=== PATIENT | female | born 1995 | race Caucasian/White ===

== ENCOUNTER 2018-02-19 11:17 | Outpatient (CLI) | payer MEDICAID ==
--- NOTE | 2018-02-19 12:22 | Non Stress Test Report ---
Non Stress Test Datetime Report Generated by CPN: 02/19/2018 12:22 DEMOGRAPHIC Test Number: 1 EGA NST: 34.6 INDICATION Indication for Study: Ordered by Provider MONITORING Monitor Explained: Monitor Explained; Test Explained; Patient Verbalized Understanding Time on Monitor: 02/19/2018 11:29 Time off Monitor: 02/19/2018 12:13 NST Duration: 44 NST INTERVENTIONS NST Interventions: PO Hydration Physician Notified NST: Faulkner, CNM BABY A: [id number] BABY A Movement : Present Contraction Frequency : 0 FHR Baseline : 135 Accelerations : 15X15 Decelerations : None Variability : Moderate 6-25bpm NST Review: Meets Criteria for Reactive NST NST Review and Verified By : TARSHA Broderick NST Results: Reactive NST REPORT Report Trigger: Send Report
== END 2018-02-19 12:21 | disposition home or self-care (01) ==
LOC: LC 11:17
PROVIDERS: ATTEND Obstetrics & Gynecology
DX: Z34.93 Encounter for supervision of normal pregnancy, unspecified, third trimester (principal); Z3A.34 34 weeks gestation of pregnancy
CPT/HCPCS: 59025

== ENCOUNTER 2018-03-20 07:15 | Inpatient (IN) | payer MEDICAID ==
[2018-03-20] MEDS ORDERED: DINOPROSTONE 10 MG VAGINAL INSERT.SR PV PRN (07:34)
[2018-03-20] MEDS ORDERED: RINGERS SOLUTION,LACTATED 300 ML IV ONE (07:34)
[2018-03-20] MEDS ORDERED: OXYTOCIN/NORMAL SALINE 20 UNIT/1,000 ML RTUINJ IV PRN ×2 (07:34→18:26)
[2018-03-20] MEDS ORDERED: RINGERS SOLUTION,LACTATED 1,000 ML IV PRN (07:34)
[2018-03-20 08:30] LABS: APPEARANCE,URINE CLEAR; BILIRUBIN,URINE NEGATIVE (NEGATIVE); COLOR,URINE YELLOW; GLUCOSE, URINE NEGATIVE (NEGATIVE); KETONES,URINE NEGATIVE (NEGATIVE); LEUKOCYTE ESTERASE,URINE TRACE (NEGATIVE); NITRITE,URINE NEGATIVE (NEGATIVE); PROTEIN,URINE NEGATIVE (NEGATIVE); URINE SPECIFIC GRAVITY 1.008; UROBILINOGEN,URINE NEGATIVE mg/dL (<2.0)
[2018-03-20 08:36] LABS: PROTHROMBIN TIME 12.7 SEC (11.4-15.4)
[2018-03-20 08:37] LABS: PARTIAL THROMBOPLASTIN TIME 33.1 SEC (23.5-35.8)
[2018-03-20 08:41] LABS: ABSOLUTE EOSINOPHILS # (AUTO) 0.1 10^3/uL (0.0-0.6); ABSOLUTE LYMPHOCYTES (AUTO) 2.9 10^3/uL (0.5-4.7); ABSOLUTE MONOCYTES (AUTO) 1.3 10^3/uL (0.1-1.4); ABSOLUTE NEUT (AUTO) 12.6 10^3/uL (1.7-8.2); ALANINE AMINOTRANSFERASE 22 U/L (9-52); ALBUMIN 3.3 g/dL (3.5-5.0); ALKALINE PHOSPHATASE 296 U/L (38-126); ANION GAP 9 (5-19); ASPARTATE AMINO TRANSFERASE 15 U/L (14-36); BASOPHILS % (AUTO) 0.2 % (0-2); BILIRUBIN,DIRECT 0.2 mg/dL (0.0-0.4); BILIRUBIN,TOTAL 0.4 mg/dL (0.2-1.3); BLOOD UREA NITROGEN 5 mg/dL (7-20); CALCIUM 9.9 mg/dL (8.4-10.2); CARBON DIOXIDE 20 mmol/L (22-30); CHLORIDE 107 mmol/L (98-107); EOSINOPHILS % (AUTO) 0.7 % (0-6); GLUCOSE 76 mg/dL (75-110); HEMATOCRIT 33.2 % (36.0-47.0); HEMOGLOBIN 11.6 g/dL (12.0-15.5); LYMPHOCYTES % (AUTO) 16.9 % (13-45); MEAN CORPUSCULAR HEMOGLOBIN 30.4 pg (27.0-33.4); MEAN CORPUSCULAR HGB CONC 34.9 g/dL (32.0-36.0); MEAN CORPUSCULAR VOLUME 87 fl (80-97); MONOCYTES % (AUTO) 7.8 % (3-13); PLATELET COUNT 418 10^3/uL (150-450); POTASSIUM 4.4 mmol/L (3.6-5.0); RED BLOOD COUNT 3.81 10^6/uL (3.72-5.28); RED CELL DISTRIBUTION WIDTH 13.8 % (11.5-14.0); SEGMENTED NEUTROPHILS % (AUTO) 74.4 % (42-78); SODIUM 136.3 mmol/L (137-145); TOTAL CELLS COUNTED % (AUTO) 100 %; TOTAL PROTEIN 6.4 g/dL (6.3-8.2); WHITE BLOOD COUNT 16.9 10^3/uL (4.0-10.5)
[2018-03-20 08:58] LABS: URINE AMPHETAMINES SCREEN NEGATIVE; URINE BARBITURATES SCREEN NEGATIVE; URINE BENZODIAZEPINES SCREEN NEGATIVE; URINE COCAINE SCREEN NEGATIVE; URINE MARIJUANA (THC) SCREEN NEGATIVE; URINE METHADONE SCREEN NEGATIVE; URINE PHENCYCLIDINE SCREEN NEGATIVE
[2018-03-20] MEDS ORDERED: OXYTOCIN/NORMAL SALINE 20 UNIT/1,000 ML RTUINJ ONE (09:38)
[2018-03-20] MEDS ORDERED: LIDOCAINE 1% INJ-PF (10 MG/ML) 30 ML SDV ONE (09:38)
[2018-03-20] MEDS ORDERED: MISOPROSTOL 0.2 MG TABLET ONE (09:38)
--- NOTE | 2018-03-20 10:59 | Admission Physical ---
Datetime Report Generated by CPN: 03/20/2018 10:59 CURRENT ADMISSION Hx Assessment: The History has been Reviewed and is Current Chief Complaint: Scheduled Induction of Labor Indication for Induction- Other: blood coag disorder Admit Impression : Term, Intrauterine Admit Plan: Admit to Unit; Initiate Labor Induction Protocol ALLERGIES Medication Allergies: Yes Medication Allergies: Penicillins/Facial swelling (03/20/2018); cefdinir/Facial swelling (03/20/2018) Latex: No Latex Allergies Food Allergies: n/a Environmental Allergies: dust, cats, dogs OBSTETRICAL HISTORY EDC: 03/27/2018 00:00 : 4 Para: 1 Term: 1 : 0 SAB: 2 IAB: 0 Ectopic: 0 Livin Cesareans: 1 VBACs: 0 Multiple Births: 0 Gestational Diabetes: No Rh Sensitization: No Incompetent Cervix: Yes KAYLEEN: No Infertility: No ART Treatment: No Uterine Anomaly: No IUGR: No Hx Previous C/S: No Macrosomia: No Hx Loss/Stillborn: No PIH: No Hx : No Placenta Previa/Abruption: No Depression/PP Depression: No PTL/PROM: No Post Hemorrhage: No Current Procedures: Ultrasound; NST; Cerclage Obstetrical History Comments: SEE RECORDS Alcohol: No Marijuana : No Cocaine: No Other Illicit Drugs: No Cigarettes: Former Smoker. [id number] MEDICAL HISTORY Diabetes: No Blood Transfusion: No Pulmonary Disease (Asthma, TB): Yes Breast Disease: No Hypertension: No Managed Care Manager Surgery: No Heart Disease: No Hosp/Surgery: No Autoimmune Disorder: No Anesthetic Complications: No Kidney Disease: No Abnormal Pap Smear: Yes Neuro/Epilepsy: No Psychiatric Disorders: No Other Medical Diseases: No Hepatitis/Liver Disease: No Significant Family History: No Varicosities/Phlebitis: No Trauma/Violence : No Thyroid Dysfunction: No Medical History Comments: asthma- juvenile , cerclage after abnormal pap smear per patient historian, leap procedure 2016 INFECTIOUS HISTORY Gonorrhea: No Genital Herpes: No Chlamydia: Yes Tuberculosis: No Syphilis: No Hepatitis: No HIV/AIDS Exposure: No Rash or Viral Illness: No HPV: Yes Infectious History Comments: chlamydia- 2012, PHYSICAL EXAM General: Normal HEENT: Deferred Neurologic: Normal Thyroid: Normal Heart: Normal Lungs: Normal Breast: Deferred Back: Normal Abdomen: Normal Genitourinary Exam: Normal Extremities: Normal DTRs: Normal Pelvic Type: Adequate Physical Exam Comments: Hx multiple LEEPS Cerclage removed, 10-2 RH Neg Vital Signs: Reviewed FETUS A EGA: 39.0 Monitoring: External US Admit Comment: Admitted for IOL, no c/o, took Heparin last night Cat 1 strip, irreg uc's Dr. Townsend aware of pts admission and POC discussed PLANS FOR LABOR AND DELIVERY Labor and Delivery: None Pain Management: Epidural Feeding Preference: Breast Benefit of Breast Feed Discussed: Yes Circumcision: N/A INFORMED CONSENT Assignment: Adonis Townsend MD Signature: with User ID: Maury : with User ID: Maury
--- NOTE | 2018-03-20 12:24 | L&D Progress Notes ---
PROGRESS NOTES Datetime Report Generated by CPN: 03/20/2018 12:24 PROGRESS NOTE Comment: VE 2/90/vtx/0 AROM, clear fluid, wanting epidural, breathing with uc's, uc's q 2-3 min SIGNATURE SIGNATURE: [id number];[id number];13,[id number] SIGNATURE: [id number];14,[id number] SIGNATURE: [id number] Assignment: Adonis Townsend MD Signature: with User ID: [email or web address] : with User ID: [email or web address]
[2018-03-20] MEDS ORDERED: EPHEDRINE SULFATE INJ 50 MG/1 ML AMPULE ONE (12:45)
[2018-03-20] MEDS ORDERED: BUPIVACAINE HCL/DEX-WATER/PF 15 MG/2 ML AMPULE ONE (12:46)
[2018-03-20] MEDS ORDERED: FENTANYL/BUPIVACAINE/NS/PF 300 MCG/150 ML RTUINJ EPI ONE (12:46)
[2018-03-20] MEDS ORDERED: BUPIVACAINE HCL 0.5 % INJ/PF 30 ML SDV ONE (12:47)
--- NOTE | 2018-03-20 15:09 | L&D Progress Notes ---
PROGRESS NOTES Datetime Report Generated by CPN: 03/20/2018 15:09 PROGRESS NOTE Impression: Reassuring Heart Rate Plan: Continue Present Management; Induction Vital Signs : Reviewed Comment: Pitocin decreased to 16 Cat 1 atrip, uc's q 2 min Comfortable MEMBRANES Membranes: Ruptured FETUS A Monitoring: External US Decelerations: Early FETUS C SIGNATURE: [id number];[id number];10,[id number] Assignment: Adonis Townsend MD Signature: with User ID: Maury : with User ID: Maury
--- NOTE | 2018-03-20 16:34 | L&D Progress Notes ---
PROGRESS NOTES Datetime Report Generated by CPN: 03/20/2018 16:34 PROGRESS NOTE Impression: Normal Progression of Labor; Reassuring Heart Rate Procedures: Sterile Vag Exam Plan: Continue Present Management; Induction Vital Signs : Reviewed; Within Normal Limits Comment: VE 4/95/vtx/0-+1 Cat 1 strip, using peanut ball, positioned changed MEMBRANES Membranes: Ruptured FETUS A Monitoring: External US Decelerations: None FHR Category: Category I FETUS C SIGNATURE: [id number];14,[id number];13,[id number] Assignment: Adonis Townsend MD Signature: with User ID: Maury : with User ID: Maury
[2018-03-20] MEDS ORDERED: DIPH/PERTUSS(ACELL)/TETANUS VAC/PF 0.5 ML SYR (>=10YO) IM PRN (18:26)
[2018-03-20] MEDS ORDERED: PROMETHAZINE HCL 25 MG SUPP.RECT PR PRN (18:26)
[2018-03-20] MEDS ORDERED: DIPHENHYDRAMINE HCL 25 MG CAPSULE PO PRN (18:26)
[2018-03-20] MEDS ORDERED: ACETAMINOPHEN WITH CODEINE #3 TABLET PO PRN (18:26)
[2018-03-20] MEDS ORDERED: GLYCERIN/WITCH HAZEL LEAF 1 EACH MED..PAD TP PRN (18:26)
[2018-03-20] MEDS ORDERED: PROMETHAZINE HCL 25 MG TABLET PO PRN (18:26)
[2018-03-20] MEDS ORDERED: PROMETHAZINE HCL INJ 25 MG/1 ML VIAL IV PRN (18:26)
[2018-03-20] MEDS ORDERED: MEASLES,MUMPS&RUBELLA VACC/PF 0.5 ML VIAL SUBCUT PRN (18:26)
[2018-03-20] MEDS ORDERED: NA PHOS,M-B/NA PHOS,DI-BA (ADULT) 133 ML ENEMA PR PRN (18:26)
[2018-03-20] MEDS ORDERED: ACETAMINOPHEN 650 MG SUPP.RECT PR PRN (18:26)
[2018-03-20] MEDS ORDERED: ZOLPIDEM TARTRATE 5 MG TABLET PO PRN (18:26)
[2018-03-20] MEDS ORDERED: DIBUCAINE 1% OINTMENT 28 GM TP PRN (18:26)
[2018-03-20] MEDS ORDERED: BENZOCAINE/MENTHOL AEROSOL SPRAY 56 ML TOP PRN (18:26)
[2018-03-20] MEDS ORDERED: PSEUDOEPHEDRINE HCL 30 MG TABLET PO PRN (18:26)
[2018-03-20] MEDS ORDERED: MAGNESIUM HYDROXIDE SUSP 30 ML UDCUP PO PRN (18:26)
--- NOTE | 2018-03-20 18:26 | PDOC DELIVERY SUMMARY ---
Delivery Summary - Maternal Risk Factors: Other Ruptured Membranes: AROM Fluids: Clear - Delivery Labor: Augmentation Presentation: Vertex Uterine Contraction Monitoring: External Support Person Present: Yes Placenta: Within Normal Limits - Medications Type of Anesthesia:: Epidural
--- NOTE | 2018-03-20 20:37 | Delivery Summary ---
Del Sum A-C Datetime Report Generated by CPN: 03/20/2018 20:37 DELIVERY PERSONNEL DELIVERY PERSONNEL: [id number] Delivery Doctor:: Adonis Townsend MD Labor and Delivery Nurse:: David Del Rosario RNmainspring reverse winder Nurse:: Lula Hogan RN Additional Personnel: : Lilia Marino RN MATERNAL INFORMATION Delivery Anesthesia: Epidural Medications After Delivery: Pitocin Bolus-Please Comment Meds After Delivery Comment: Pitocin 20 units in 1000 ml nss open for bolus Maternal Complications: None LABOR SUMMARY EDC: 03/27/2018 00:00 No. Babies in Womb: 1 Attempted: No Labor Anesthesia: Epidural LABOR INFORMATION Reason for Induction: Other Reason for Induction- Other: heparin treatment Onset of Labor: 03/20/2018 16:48 Complete Dilatation: 03/20/2018 18:13 Other Ripening Agents: N/A Oxytocin: Induction Group B Beta Strep: negative Antibiotics # of Doses: 0 Antibiotics Time of Last Dose: N/A Name of Antibiotic Given: N/A Steroids Given: None Reason Steroids Not Administered: Not Applicable Other Reason Not Administered: N/A MEMBRANES Membranes Rupture Method: Artificial Rupture of Membranes: 03/20/2018 12:00 Length of Rupture (hr): 6.28 Amniotic Fluid Color: Clear Amniotic Fluid Amount: Small Amniotic Fluid Odor: Normal STAGES OF LABOR Stage 1 hr: 1 Stage 1 min: 25 Stage 2 hr: 0 Stage 2 min: 4 Stage 3 hr: 0 Stage 3 min: 3 Total Time in Labor hr: 1 Total Time in Labor min: 32 VAGINAL DELIVERY Episiotomy: None Laceration #1: None Laceration Extension #1: N/A Laceration Repair: Not Applicable Sponge Count Correct: N/A CSECTION DELIVERY Primary Indication: N/A Secondary Indication: N/A CSection Incidence: N/A Labor: N/A Elective: N/A CSection Incision: N/A BABY A INFORMATION Delivery Date/Time: 03/20/2018 18:17 Method of Delivery: Vaginal Born in Route : No : N/A Forceps: N/A Vacuum Extraction: N/A Shoulder Dystocia : No PRESENTATION/POSITION BABY A Presentation: Cephalic Cephalic Presentation: Vertex Vertex Position: Left Occipital Anterior Breech Presentation: N/A PLACENTA INFORMATION BABY A Placenta Delivery Time : 03/20/2018 18:20 Placenta Method of Delivery: Spontaneous Placenta Status: Delivered SCORES BABY A Heart Rate 1 min: >100 bpm Resp Effort 1 min: Good Cry Reflex Irritability 1 min: Cough or Sneeze or Pulls Away Muscle Tone 1 min: Active Motion Color 1 min: Body [place], Extremities Blue Resuscitation Effort 1 min: N/A SCORE 1 MIN: 9 Heart Rate 5 min: >100 bpm Resp Effort 5 min: Good Cry Reflex Irritability 5 min: Cough or Sneeze or Pulls Away Muscle Tone 5 min: Active Motion Color 5 min: Body [place], Extremities Blue Resuscitation Effort 5 min: N/A SCORE 5 MIN: 9 INFORMATION BABY A Gestational Age at Delivery: 39.0 Gestational Status: Full Term- 39- 40.6 Weeks Outcome : Liveborn Condition : Stable Sex: Female IDENTIFICATION BABY A Verification Date/Time: 03/20/2018 19:23 ID Band Number: [id number] Mother's Name Verified: Yes RN Verifying Infant: Lloyde RN Additional Verifying Personnel: Kiesha RN WEIGHT/LENGTH BABY A Birthweight (gm): 3190 Weight (lb): 7 Infant Weight (oz): 1 Infant Length (in): 19.75 Length (cm): 50.17 CORD INFORMATION BABY A No. Cord Vessels: 3 Nuchal Cord : N/A Cord Blood Taken: Yes-For Eval (Mom's Blood Type - or O+) Suction: None ASSESSMENT BABY A Infant Complications: None Physical Findings at Delivery: Within Normal Limits Infant Respirations: Appears Normal Skin to Skin: Yes Care By: Harjinder Hogan RN/ Torres Marino RN Transferred To: Remains with Mother BABY B INFORMATION : N/A SIGNATURES Signature: with User ID: [email or web address]
[2018-03-20] MEDS: IBUPROFEN 800 MG TABLET PO SCH (22:38)
[2018-03-20] MEDS: FAMOTIDINE 20 MG TABLET PO SCH (22:38)
[2018-03-21] MEDS: IBUPROFEN 800 MG TABLET PO SCH ×3 (05:41→21:50)
[2018-03-21 07:49] LABS: HEMATOCRIT 28.4 % (36.0-47.0); MEAN CORPUSCULAR HGB CONC 35.4 g/dL (32.0-36.0); MEAN CORPUSCULAR VOLUME 88 fl (80-97); PLATELET COUNT 362 10^3/uL (150-450); RED BLOOD COUNT 3.23 10^6/uL (3.72-5.28); RED CELL DISTRIBUTION WIDTH 13.8 % (11.5-14.0); WHITE BLOOD COUNT 15.4 10^3/uL (4.0-10.5)
[2018-03-21] MEDS: ENOXAPARIN SODIUM INJ 40 MG/0.4 ML DISP.SYRIN SUBCUT SCH ×2 (09:19→21:51)
[2018-03-21] MEDS: SENNOSIDES/DOCUSATE 8.6-50 MG 1 EACH TABLET PO SCH (09:19)
[2018-03-21] MEDS: PRENATAL VITAMIN W DHA CAPSULE PO SCH (09:19)
[2018-03-21] MEDS: DOCUSATE SODIUM 100 MG CAPSULE PO SCH ×2 (09:19→18:06)
[2018-03-21] MEDS: FERROUS SULFATE 325 MG TABLET PO SCH ×2 (09:19→18:06)
--- NOTE | 2018-03-21 10:01 | PDOC DISCHARGE SUMMARY ---
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?: Yes (2) Hx LEEP (loop electrosurgical excision procedure), cervix, Is this a current diagnosis for this admission?: Yes (3) Vaginal delivery Is this a current diagnosis for this admission?: Yes Discharge Data - Discharge Medication Home Medications: Aspirin 1 tab PO DAILY 02/19/18 Ferrous Sulfate [Iron] 325 mg PO DAILY 02/19/18 No122/Iron/Folic Acid [ Multi Tablet] 1 tab PO DAILY 02/19/18 Heparin Sodium,Porcine/Pf [Heparin 1,000 Unit/10 (100/ml)] 1,000 unit IV BID 10/02 Reason(s) for Admission: Induction of Labor, Medical Complications, Other Procedures: NST Intrapartum Procedure(s): Spontaneous Vaginal Delivery - Diagnosis Test Laboratory: Temp Pulse Resp BP Pulse Ox 98.5 F 74 16 112/55 L 100 03/21/18 08:00 03/21/18 08:00 03/21/18 08:00 03/21/18 08:00 03/21/18 08:00 03/20/18 03/20/18 03/21/18 07:35 08:03 07:33 RBC 3.81 3.23 L Hgb 11.6 L 10.0 L Hct 33.2 L 28.4 L Urine Opiates Screen NEGATIVE - Discharge information/Instructions Discharge Activity: Balance Activity w/Rest, Pelvic Rest Discharge Diet: Regular Disposition: HOME, SELF-CARE Follow up with: [facility] in: 3, Weeks
--- NOTE | 2018-03-21 11:25 | PDOC PROGRESS REPORT ---
Subjective-OB Progress Note for:: 03/21/18 Subjective: Pt doing well, no concerns. She reports light bleeding, reg diet, and is ambulatory. Physical Exam (OB) Vital Signs: Temp Pulse Resp BP Pulse Ox 98.5 F 74 16 112/55 L 100 03/21/18 08:00 03/21/18 08:00 03/21/18 08:00 03/21/18 08:00 03/21/18 08:00 Intake & Output 03/20/18 03/21/18 03/22/18 06:59 06:59 06:59 Weight 73.3 kg - Lochia Lochia Amount: Small 10-25 ml Lochia Color: Rubra/Red - Abdomen Description: Tender, Soft, Round Hernia Present: No Fundal Description: Firm, Midline Fundal Height: u/u - u/2 Objective-Diagnostic Laboratory: 03/21/18 07:33 03/20/18 08:03 03/21/18 03/21/18 07:33 07:33 WBC 15.4 H RBC 3.23 L Hgb 10.0 L Hct 28.4 L MCV 88 MCH 31.0 MCHC 35.4 RDW 13.8 Plt Count 362 Blood Type A NEGATIVE Assessment and Plan(PN) - Assessment and Plan (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
[2018-03-21] MEDS: FAMOTIDINE 20 MG TABLET PO SCH ×2 (14:35→21:50)
[2018-03-22] MEDS: IBUPROFEN 800 MG TABLET PO SCH (05:50)
[2018-03-22 09:49] VITALS: BP 112/55
--- NOTE | 2018-03-22 10:53 | PDOC PROGRESS REPORT ---
Subjective-OB Progress Note for:: 03/22/18 Subjective: Pt is doing well, ready to go home today. Bleeding is light, reg diet. No concerns. 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
[2018-03-22] MEDS: SENNOSIDES/DOCUSATE 8.6-50 MG 1 EACH TABLET PO SCH (11:15)
[2018-03-22] MEDS: FERROUS SULFATE 325 MG TABLET PO SCH (11:15)
[2018-03-22] MEDS: FAMOTIDINE 20 MG TABLET PO SCH (11:15)
[2018-03-22] MEDS: DOCUSATE SODIUM 100 MG CAPSULE PO SCH (11:15)
[2018-03-22] MEDS: PRENATAL VITAMIN W DHA CAPSULE PO SCH (11:15)
[2018-03-22] MEDS: ENOXAPARIN SODIUM INJ 40 MG/0.4 ML DISP.SYRIN SUBCUT SCH (11:16)
== END 2018-03-22 14:36 | disposition home or self-care (01) | DRG 806 ==
LOC: LR 07:15 → 2S 22:10
PROVIDERS: ADMIT Obstetrics & Gynecology Gynecology; ATTEND Obstetrics & Gynecology Gynecology
PROC: 10E0XZZ Delivery of Products of Conception, External Approach (ICD-10-PCS; principal; 2018-03-20)
PROC: 3E033VJ Introduction of Other Hormone into Peripheral Vein, Percutaneous Approach (ICD-10-PCS; 2018-03-20)
PROC: 4A1HXCZ Monitoring of Products of Conception, Cardiac Rate, External Approach (ICD-10-PCS; 2018-03-20)
PROC: 3E0234Z Introduction of Serum, Toxoid and Vaccine into Muscle, Percutaneous Approach (ICD-10-PCS; 2018-03-21)
DX: O99.12 Other diseases of the blood and blood-forming organs and certain disorders involving the immune mechanism complicating childbirth (principal); D68.2 Hereditary deficiency of other clotting factors; Z37.0 Single live birth; O26.893 Other specified pregnancy related conditions, third trimester; Z67.11 Type A blood, Rh negative; Z3A.39 39 weeks gestation of pregnancy; Z88.0 Allergy status to penicillin; Z87.891 Personal history of nicotine dependence
CPT/HCPCS: 36415; 80053; 80307; 81005; 85025; 85027; 85461; 85610; 85730; 86592; 86850; 86900; 86901; 90471; 90686; G0008; J1650; J2590; J2790; J3010; J3490